=== PATIENT | male | born 1950 | race Caucasian/White ===

== ENCOUNTER 2019-10-28 03:24 | Emergency (ER) | payer MEDICARE, BC ==
[2019-10-28] MEDS ORDERED: ACETAMINOPHEN 325 MG TABLET PO STA (03:36)
--- NOTE | 2019-10-28 04:35 | ED Physician Documentation ---
PD HPI HEENT - Stated complaint Stated Complaint: HICCUPS,SORE THROAT - Chief complaint Chief Complaint: Fever - History obtained from History obtained from: Patient - History of Present Illness Timing - onset: How many days ago (3-4) Timing - duration: Days Timing - details: Gradual onset Location: Nose, Throat Improves: Nothing Worsens: Other (no exacerbating factors) Associated symptoms: Fever (in ED but not aware of fevers at home), Congestion, Rhinorrhea, Cough Similar symptoms before: Has not had sx before Recently seen: Not recently seen - Additional information Additional information: c/o 4 days of sore throat, sinus congestion, post nasal drip, rhinorrhea, [employer] cough. his chief complaint is intermittent hiccups x 3 days Review of Systems Constitutional: reports: Fever, Chills, Sweats. denies: Myalgias, Fatigue Ears: denies: Ear pain Nose: reports: Rhinorrhea / runny nose, Congestion Throat: reports: Sore throat Cardiac: reports: Reviewed and negative Respiratory: reports: Cough. denies: Dyspnea, Hemoptysis, Wheezing PD PAST MEDICAL HISTORY - Past Medical History Past Medical History: Yes Cardiovascular: Hypertension, High cholesterol, Coronary artery disease, [place] - Past Surgical History Past Surgical History: No - Present Medications Home Medications: Ambulatory Orders Medication Instructions Recorded Confirmed Azithromycin [Zithromax] 250 mg PO DAILY #4 tablet 10/28/19 Baclofen [Lioresal] 10 mg PO TID PRN #20 tablet 10/28/19 - Allergies Allergies/Adverse Reactions: Allergies Allergy/AdvReac Type Severity Reaction Status Date / Time No Known Drug Allergies Allergy Verified 10/28/19 03:35 - Social History Does the pt smoke?: No Smoking Status: Never smoker Does the pt drink ETOH?: Yes ETOH Use: Wine Does the pt have substance abuse?: No - Immunizations Immunizations are current?: No - POLST Patient has POLST: No PD ED PE NORMAL - Vitals Vital signs reviewed: Yes - General General: Alert and oriented X 3, No acute distress, Well developed/nourished, Other (occasional hiccups during H+P) - HEENT HEENT: Moist mucous membranes - Neck Neck: Supple, no meningeal sign - Cardiac Cardiac: RRR, No murmur - Respiratory Respiratory: No respiratory distress - Abdomen Abdomen: Soft, Non tender PD ED PE EXPANDED - HEENT HEENT: Pharyngeal erythema. No: Tonsillar exudate - Respiratory Respiratory: Rhonchi (scattered rhonchi bilaterally, more pronounced in bases and L>R) Results - Vitals Vitals: Oxygen O2 Source Room air PD MEDICAL DECISION MAKING - ED course Complexity details: considered differential, d/w patient ED course: options for testing and treatment d/w patient. he has rhonchi on exam but is in no respiratory distress. he has fever on presentation, sore throat, and posterior pharyngeal erythema. testing could potentially include chest xray, strep swab. however, my suspicion for a bacterial process (strep pharyngitis, early pneumonia) is high enough that I recommend starting an antibiotic at this time, and doing so would obviate the need for emergent testing at this time (he does not have exam findings or appearance that suggest a pneumonic process that would necessitate further testing or inpatient treatment). patient agrees with this plan and will return if worse. suspect hiccups are due to diaphragmatic irritation from presumed pulmonic infectious process. will try baclofen for hiccups. Departure - Departure Disposition: 01 Home, Self Care Clinical Impression: Pharyngitis, Hiccups Condition: Good Instructions: ED Strep Pharyngitis Poss, ED Hiccups Prescriptions: Azithromycin [Zithromax] 250 mg PO DAILY #4 tablet Baclofen [Lioresal] 10 mg PO TID PRN #20 tablet PRN Reason: Hiccups Discharge Date/Time: 10/28/19 05:13
[2019-10-28] MEDS ORDERED: AZITHROMYCIN 250 MG TABLET PO STA (04:54)
[2019-10-28] MEDS ORDERED: BACLOFEN 10 MG TABLET PO STA (04:59)
[2019-10-28 05:12] VITALS: BP 142/84
== END 2019-10-28 05:13 | disposition home or self-care (01) ==
LOC: ED 03:24
DX: J02.9 Acute pharyngitis, unspecified (principal); R06.6 Hiccough; I10 Essential (primary) hypertension
CPT/HCPCS: 99282; 99284; A9270